=== PATIENT | male | born 1980 | race Caucasian/White ===

== ENCOUNTER → 2022-03-03 13:41 | Outpatient (CLI) | payer OTHER, SELFPAY ==
--- NOTE | 2022-03-03 | DI.MRI.S_ITS ---
PROCEDURE: MR KNEE RT WO CON INDICATIONS: Pain in unspecified knee TECHNIQUE: Noncontrast sagittal PD fast spin echo and T2 fast spin echo with fat saturation, sagittal 3-D FLASH with fat saturation; coronal T1 spin echo and PD fast spin echo with fat saturation, and axial PD fast spin echo with fat saturation through the knee. COMPARISON: None. FINDINGS: Image quality: Excellent. Menisci: The medial and lateral menisci demonstrate normal morphology and internal signal. The meniscal root ligaments appear intact. Cruciate ligaments: The anterior and posterior cruciate ligaments appear intact. Medial structures: The medial collateral ligament appears intact. The posterior oblique ligament, semimembranosus tendon insertions, oblique popliteal ligament, and meniscocapsular junction appear intact. Visualized portions of the pes anserinus tendons appear normal. No abnormal bursal fluid. Lateral structures: The lateral collateral ligament, long and short heads of the biceps femoris tendon appear intact. The popliteus tendon appears normal; the popliteofibular ligament appears intact. The posterosuperior and anteroinferior popliteomeniscal fascicles appear intact. The arcuate and fabellofibular ligaments appear intact, on either side of the lateral inferior geniculate artery. Iliotibial band appears normal. Anterior structures: The quadriceps and patellar tendons appear intact. Patellar alignment is normal. No femoral trochlear dysplasia or ventral trochlear prominence. No edema in the infrapatellar fat pad. Bones and cartilage: No bone marrow contusions or fractures. Low to moderate grade chondromalacia involving lateral facet of patella cartilage is seen extending to apex. The cartilage of the medial and lateral femorotibial compartments appears normal in thickness. Joint space: There is physiologic knee joint fluid. No Silva's cyst. Normal appearing synovial plicae are incidentally noted. IMPRESSION: 1. 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 No marrow edema. No fracture or dislocation. 2. No evidence of focal meniscal tear. 3. Cruciate ligaments are intact. Dictated by: Porter Mckeon M.D. on 03/03/2022 at 15:26 Approved by: Porter Mckeon M.D. on 03/03/2022 at 15:35
== END ==
DX: M22.41 Chondromalacia patellae, right knee (principal); M25.561 Pain in right knee
CPT/HCPCS: 73721